=== PATIENT | male | born 1950 | race Caucasian/White ===

== ENCOUNTER 2017-08-13 07:29 | Day surgery (SDC) | payer OTHER ==
[~2017-08-13] VITALS: Ht 177.8 cm; Wt 93.5 kg
[2017-08-13] VITALS (7 sets, daily range): BP systolic 145–174; BP diastolic 80–97; PULSE 85–96; TEMP 36.7–37.3; O2SAT 96–98; Ht 177.8 cm; Wt 93.5 kg
[~2017-08-13 07:29] MED LIST: ACLI1AER3 INH; ASPI-232 PO; CARV6.252 PO; GUAI400T29 PO; IPRASOL4 INH; LISI10TA PO; MONT1TAB5 PO; NYSS/ PO; PRAV20TA PO; SYMIN160 INH; [UNRECOGNIZED DRUG - CODE]
[2017-08-13] MEDS ORDERED: GLC/500 PO (08:13)
[2017-08-13] MEDS ORDERED: SITA1TAB27 PO (08:13)
[2017-08-13] MEDS ORDERED: NURSING VERBAL MED ORDER ONE (09:00)
--- NOTE | 2017-08-13 09:14 | History & Physical Bridge Note ---
H&P Re-Evaluation Bridge Note: I have examined the patient, reviewed the History & Physical and in the interval since the performance of the History & Physical I have noted the following changes of clinical significance: No changes noted
--- NOTE | 2017-08-13 09:15 | Pre Sedation Assessment ---
Pre Sedation Assessment General Date of Sedation: Aug 13, 2017. Vital Signs Past 12 Hours Date Time Temp Pulse Resp B/P (MAP) Pulse Ox O2 Delivery O2 Flow Rate FiO2 08/13/17 08:07 36.8 87 22 147/89 (108) 96 Room Air Pre-Sedation Airway Assessment Smoking Status: Current Every Day Smoker Hx of Sleep Apnea: Yes Short Thick Neck: No Thyro-mental Distance: > 3 Finger Breadths Oral Cavity: Dentures Mallampati Classification: Class II ASA Classification: Class II NPO Status Date of Last Intake of Fluids: Aug 12, 2017 Time of Last Intake of Fluids: 2300 Date of Last Intake of Solids: Aug 12, 2017 Time of Last Intake of Solids: 2100 Procedure Planning Contraindications for Sedation: None Current Medications Reviewed: Yes Notes The planned sedation has been discussed with the patient. Informed Consent was obtained. I have identified the patient, determined the appropriateness of sedation and have assessed the patient immediately prior to the procedure. All medicine(s) and interventions are by my order.
--- NOTE | 2017-08-13 09:47 | Post Sedation Assessment ---
Post Sedation Assessment General Date of Sedation Aug 13, 2017. Vital Signs: Vital Signs Past 12 Hours Date Time Temp Pulse Resp B/P (MAP) Pulse Ox O2 Delivery O2 Flow Rate FiO2 08/13/17 09:35 100 19 175/83 97 Nasal Cannula 4 08/13/17 09:30 100 19 174/101 100 Nasal Cannula 4 08/13/17 09:20 98 19 171/109 99 Nasal Cannula 4 08/13/17 08:07 36.8 87 22 147/89 (108) 96 Room Air Post Sedation Plan On clinical assessment, the patient appears to have tolerated the sedation without complications. Patient is recovering as anticipated. Patient will continue to be monitored by nursing and may be discharged when sedation discharge criteria are met per below protocol. Upon Completions of procedure and additional 15 minutes continue every 5 minute vital signs and the P.A.R. score; then discharge to a Phase I or Fast Track to Phase II per the following guidelines: * Discharge Patient to appropriate Phase II area if PAR is 8 or greater or return to pre- procedure baseline. The post - procedure orders will be as directed. * If PAR score is less than 8 or not return to pre-procedure baseline then patient will follow Phase I monitoring till PAR is reached for Phase II. The Phase I may be done in procedure room or may call to secure a Phase I area. * If naloxone or flumazenil are used for reversal, hold in Phase I for an additional 60 -120 minutes before discharge to Phase II. Please call the Sedation Physician to re-evaluate and complete post-note for discharge to Phase II area. Do NOT discharge from procedure sedation or Phase 1 until post- sedation evaluation note is complete by procedure /sedation MD Sedation Discharge Instructions to be given to the patient at discharge to home.
--- NOTE | 2017-08-13 09:49 | Discharge Instructions ---
Discharge Instructions Date of Service Aug 13, 2017. Admission Reason for Admission: Copd, Cough, Bronchitis, Tobacco Use Discharge Discharge Diagnosis / Problem: Chronic Mucopurulent Bonchitis Discharge Goals Goal(s): Therapeutic intervention Activity Recommendations Activity Limitations: resume your previous activity Lifting Limitations: none Exercise/Sports Limitations: none May Resume Sexual Activity: when tolerated Shower/Bathe: no limitations Driving or Machine Use: resume 1 day after discharge none . Instructions / Follow-Up Instructions / Follow-Up ACTIVITY RECOMMENDATIONS: * Rest today, resume normal activity tomorrow. * Do not drive today. SPECIAL CARE INSTRUCTIONS: * Call your physician if you experience any chest or shoulder pain, fever, coughing, spitting up blood (more than 2 teaspoons) or excessive shortness of breath. * Remove dressing from IV site (where needle was placed into the vein) after 2 hours. Apply a warm, moist compress to site if irritation occurs. Call physician if site becomes red or painful to touch. FOLLOW UP VISIT: * Keep any scheduled doctor appointments. Current Hospital Diet Patient's current hospital diet: regular Discharge Diet Recommended Diet: Regular Diet Pending Studies Studies pending at discharge: no Medical Emergencies . Who to Call and When: Medical Emergencies: If at any time you feel your situation is an emergency, please call 911 immediately. . Non-Emergent Contact Non-Emergency issues call your: Global Chief Creative Officer Call Non-Emergent contact if: temperature is above 101 . . "Provider Documentation" section prepared by Jarad Araujo. . VTE Core Measure Inpt VTE Proph given/why not?: Treatment not indicated
[2017-08-13] MEDS ORDERED: MIDAZOLAM HCL 5 MG/ML 1 ML VIAL IV ONE (09:53)
[2017-08-13] MEDS ORDERED: LEVALBUTEROL 1.25MG/3ML NEB INH ONE (09:53)
[2017-08-13] MEDS ORDERED: LIDOCAINE HCL 2% LOCAL 50ML VIAL INSTIL ONE (09:53)
[2017-08-13] MEDS ORDERED: LIDOCAINE 4% INH SOLN 4 ML BTL TOP ONE (09:53)
[2017-08-13] MEDS ORDERED: FENTANYL CITRATE INJ 50 MCG/1 ML 2 ML VIAL IV ONE (09:53)
[2017-08-13] MEDS ORDERED: OXYMETAZOLINE HCL 0.05% NA SPR 15 ML BTL ONE (09:53)
[2017-08-13] MEDS ORDERED: LIDOCAINE VISCOUS 2% 100ML TOP ONE (09:53)
[2017-08-13] MEDS ORDERED: DEXTROSE 5% 1000ML 1,000 ML IV SCH (10:00)
--- NOTE | 2017-08-13 10:04 | OPERATIVE REPORT ---
DATE OF OPERATION: 08/13/2017 PROCEDURE: Fiberoptic bronchoscopy with bronchoalveolar lavage. INDICATIONS: COPD, persistent chest congestion refractory to outpatient therapy. ANESTHESIA PREOPERATIVELY: None. ANESTHESIA DURING PROCEDURE: IV Versed 5 mg IV, fentanyl 50 mcg, 20 mL 2% Xylocaine spray above and below the cords, 4% viscous Xylocaine intranasally. DESCRIPTION OF THE PROCEDURE: Fiberoptic bronchoscope was inserted into the right naris with minimal difficulty and passed to the level of the true vocal cords. The cords appeared to approximate normally with phonation without evidence of lesions or paralysis. The area was anesthetized with 2% Xylocaine spray and the scope was then introduced in the right and left tracheobronchial tree. The cords did look somewhat irregular at the superior margin but no discernible mass was seen. Once the cords were anesthetized, the trachea was evaluated and at the alonso, the alonso looked sharp. There was evidence for tracheomalacia with EDAC of the trachea up to the level of the alonso. The right main stem bronchus was explored and thick purulent secretion was lavaged from virtually all lobar segments until clear with a moderate degree of global inflammatory mucosal change. The right upper lobe, the apical posterior and anterior segments, bronchus intermedius, right middle lobe and the medial and lateral segments and all basilar segments of right lower lobe were found to be free of endobronchial lesions. The right lower lobe was copiously lavaged with normosol and the aspirate sent for appropriate studies. Left tracheobronchial tree was explored and similar findings were noted with chronic inflammatory mucosal change. Mucus pitting with bronchial crypts and clefts was seen throughout the left tracheobronchial tree. Thick mucopurulent secretion was lavaged from all lobar segments until clear. No endobronchial lesions were seen. No brushings or biopsies were attempted. The procedure was terminated. The patient was given a nebulizer treatment with Xopenex 1.25 mg and then transferred to the medical treatment unit hemodynamically stable with no signs of respiratory compromise. We will await microbiological and cytologic examination of the bronchial washings. I attest to the content of the Intraoperative Record and any orders documented therein. Any exception s are noted below.
[2017-08-15 14:58] LABS: HERPES SIMPLEX VIRUS CULT NOT ISOLATED (NOT ISOLATED)
== END 2017-08-13 12:02 | disposition home or self-care (01) ==
LOC: C.ACU 07:29
PROVIDERS: ATTEND Internal Medicine Pulmonary Disease
DX: J41.1 Mucopurulent chronic bronchitis (principal); I25.10 Atherosclerotic heart disease of native coronary artery without angina pectoris; E11.9 Type 2 diabetes mellitus without complications; F17.200 Nicotine dependence, unspecified, uncomplicated; I10 Essential (primary) hypertension; Z83.3 Family history of diabetes mellitus; Z82.5 Family history of asthma and other chronic lower respiratory diseases; Z82.49 Family history of ischemic heart disease and other diseases of the circulatory system; Z79.899 Other long term (current) drug therapy; Z79.82 Long term (current) use of aspirin; Z79.84 Long term (current) use of oral hypoglycemic drugs